=== PATIENT | male | born 1960 | race Caucasian/White ===

== ENCOUNTER 2017-03-04 13:47 | Outpatient (CLI) | payer OTHER ==
--- NOTE | 2017-03-04 19:59 | MRI ---
MRI OF THE LUMBAR SPINE WITH AND WITHOUT IV CONTRAST: Indication: Lumbar radiculopathy, low back pain, numbness down left leg. Technique: Multiplanar, multisequence MR images were obtained of the lumbar spine with and without co ntrast. 20 cc of MultiHance administered. Comparison: 04-20-16 FINDINGS: There is post-surgical change of laminectomy at the L2-3 level. There are stable changes of a left la minotomy at L5-S1. The bone marrow signal intensity appears within normal limits. There is a small 1.2 cm cyst involving the superior pole of the right kidney. Visualized retroperitoneal appears within normal limits. At the L5-S1 level, there is a residual broad based disc bulge and facet hypertrophy inducing mild le ft lateral recess narrowing without definite contact of the traversing left S1 nerve root. There is l oss of disc space height in addition to the distal osteophyte complex and facet joint degenerative ch nicole induces moderate left and mild to moderate right neural foraminal narrowing which is stable to t he prior exam. At L4-5, there is an asymmetric to the left broad based disc osteophyte complex and facet hypertrophy inducing mild central canal narrowing with moderate right and moderate to severe left neural foramin al narrowing which is stable. At L3-4, there is a disc osteophyte complex and facet joint degenerative change inducing moderate rig ht and mild to moderate left neural foraminal narrowing which is stable. At L2-3, there is an asymmetric to the right disc osteophyte complex with a superimposed right parace ntral protrusion causing severe narrowing of the right lateral recess with probable impingement of th e traversing right L3 nerve root. There is mild central canal narrowing at this level. Broad based bu lge and facet joint degeneration inducing moderate right and mild left facet joint degenerative fleming e which is stable. At L1-2, there is a broad based bulge with facet joint degenerative change without appreciable centra l canal or neural foraminal narrowing. At T12-L1, there is no appreciable central canal or neural foraminal narrowing. At T11-12, there is a left paracentral protrusion which is stable causing mild effacement of the left ventral lateral thecal sac. No definite neural foraminal narrowing is evident. There are stable post-operative changes of laminotomies on the left at L5-S1. There is new laminotomy change seen on the left at L4-5. Post contrast images demonstrate some epidural fibrosis seen at the laminectomy site at L2-3 and on t he left at L4-5 and L5-S1. IMPRESSION: 1. Persistent broad based disc osteophyte complex with right paracentral protrusion causing severe ri ght lateral recess narrowing at L2-3 and probable impingement of the traversing right L3 nerve root. There is stable central canal narrowing at this level. 2. Stable multilevel neural foraminal narrowing as detailed above. 3. Right renal cyst. POS: ANTONIA
== END 2017-03-04 13:48 | disposition home or self-care (01) ==
LOC: TBSIIMAG 13:47
PROVIDERS: ATTEND Neurological Surgery
DX: M54.16 Radiculopathy, lumbar region (principal); M99.83 Other biomechanical lesions of lumbar region; N28.1 Cyst of kidney, acquired
CPT/HCPCS: 72158

== ENCOUNTER 2017-04-01 14:22 | Outpatient (CLI) | payer OTHER | END 2017-04-01 14:23 | disposition home or self-care (01) | LOC: BICCT 14:22 | PROVIDERS: ATTEND Neurological Surgery | DX: M47.26 Other spondylosis with radiculopathy, lumbar region (principal); M51.16 Intervertebral disc disorders with radiculopathy, lumbar region; M48.061 Spinal stenosis, lumbar region without neurogenic claudication; Z98.1 Arthrodesis status | CPT/HCPCS: 72131 ==

== ENCOUNTER 2017-04-11 09:18 | Outpatient (CLI) | payer OTHER ==
--- NOTE | 2017-04-27 13:26 | EKG ---
Test Reason : Blood Pressure : / mmHG Vent. Rate : 079 BPM Atrial Rate : 079 BPM P-R Int : 192 ms QRS Dur : 110 ms QT Int : 404 ms P-R-T Axes : 061 057 005 degrees QTc Int : 463 ms Normal sinus rhythm Inferior infarct , age undetermined Abnormal ECG When compared with ECG of 28-MAY-2016 10:17, No significant change was found Confirmed by LOCO SCHAEFER MD ([id number]) on 04/27/2017 1:25:54 PM Referred By: BETHANIE Confirmed By:LOCO SCHAEFER MD
== END 2017-04-11 09:19 | disposition home or self-care (01) ==
LOC: LABBT 09:18
PROVIDERS: ATTEND Neurological Surgery
DX: Z01.818 Encounter for other preprocedural examination (principal); M54.16 Radiculopathy, lumbar region
CPT/HCPCS: 93005; 93010

== ENCOUNTER 2017-04-17 08:49 | Day surgery (SDC) | payer OTHER ==
[2017-04-11 09:37] VITALS: BMI 30.2
--- NOTE | 2017-04-16 16:03 | HP ---
HISTORY OF PRESENT ILLNESS: Mr. Mota is a 56-year-old man, who presents for evaluation of lumbar radiculopathy in a left L5 fashion and partial S1 fashion. He is known to us for previous multileve l lumbar decompressions and returns now with a CT scan at [place] that reveals again lateral reces s stenosis and foraminal stenosis of L5 that would account for his symptoms to the left. He is here to discuss surgical intervention. PAST MEDICAL HISTORY: Diabetes, gout, hernia, hyperlipidemia, and hypertension. CURRENT MEDICATIONS: Metformin, allopurinol, amlodipine, levothyroxine, Mobic, lisinopril, Benefiber , atorvastatin, cyclobenzaprine, Tylenol #3. ALLERGIES: Any STEROIDS. PHYSICAL EXAMINATION: NEUROLOGIC: Patient is alert and oriented x3. Gait is significantly antalgic. Lower extremity yris r exam is normal. ASSESSMENT: Lumbar radiculopathy. PLAN: Dr. Porter met with the patient, reviewed imaging, and ultimately advocated for a left L5 facet ectomy. He explained to the patient the risks, benefits, and alternatives to the procedure. The pat ient expressed understanding and would like to move forward with surgery as discussed. I do believe the patient is mentally competent and capable of making medical decisions for himself and we will mov e forward with surgery as planned. Juan Salazar PA-C dictating for Jacoby Porter M.D.
[2017-04-17] MEDS ORDERED: CEFAZOLIN/Water 2 GM/20 ML SYRINGE ONE ×2 (09:21→14:03)
[2017-04-17] MEDS ORDERED: Bupivacaine/Epinephrine 0.25% 30 ML VIAL ONE (09:33)
[2017-04-17] MEDS ORDERED: Thrombin 5000 UNITS/5 ML VIAL ONE (10:27)
[2017-04-17] MEDS ORDERED: Midazolam HCl 2 mg/2 ml Vial ONE (10:32)
[2017-04-17] MEDS ORDERED: Fentanyl 250 MCG/5 ML VIAL ONE (10:32)
[2017-04-17] MEDS ORDERED: HYDROmorphone 2 MG/ML VIAL SLOW IVP PRN (11:55)
[2017-04-17] MEDS ORDERED: Promethazine HCl 25 MG/ML VIAL SLOW IVP PRN (11:55)
[2017-04-17] MEDS ORDERED: Meperidine HCl/PF 25 MG/ML VIAL SLOW IVP PRN (11:55)
[2017-04-17] MEDS ORDERED: Morphine Sulfate 2 MG/ML SYRINGE SLOW IVP PRN (11:55)
--- NOTE | 2017-04-17 12:54 | OP ---
DATE OF PROCEDURE: 04/17/2017 SURGEON: Jacoby Porter M.D. COMPLIANCE ADMINISTRATOR: Mike Salazar PA-C. INDICATION: Pain. DIAGNOSIS: Lumbar radiculopathy. PROCEDURES PERFORMED: Reoperation left L5 facetectomy. ANESTHESIA: General. TECHNIQUE: The patient was brought into the operating room and placed under general anesthesia. He was flipped from a supine to a prone position on the operating room table. A linear incision was jairo nned at the location of the prior incision. This area was prepped and draped. After an appropriate operative pause, the incision was created. The soft tissues were swept away from midline. Self-boogie ining retractors were placed in the wound for optimal exposure. After confirming the appropriate lev el, a high-speed cutting drill bit as well as 2, 3 and 4 mm Kerrisons were used to remove the majorit y of the facet joint at L5-S1 on the left. There were bone spurs emanating from the superior articul ating facet of S1 as well as spurs from the inferior aspect of L5. These were carefully removed unti l the foramen was patent. We opened without evidence of compression. There was a substantial degree of scar present for a prior operation. Some of this was removed. Some of it was adherent to the du ra and the exiting nerve root which was not removed, but was no longer under pressure. I did inspect the right side. New onset symptoms on the proximal aspect of the posterior right leg. I also revie wed the patient's CT scan and there was nothing to be done surgically in that location. The wound wa s then irrigated. Hemostasis was maintained throughout. The wound was then closed in anatomic layer s and a pressure dressing was applied. There were no known procedural complications.
[2017-04-17] MEDS ORDERED: Fentanyl 100 MCG/2 ML VIAL ONE (13:06)
[2017-04-17] MEDS ORDERED: Tamsulosin HCl 0.4 MG CAP ONE (13:20)
[2017-04-17] MEDS ORDERED: Ondansetron ODT 4 MG TAB ONE (14:11)
[2017-04-17] MEDS ORDERED: HYDROcodone/Acetaminophen 5/325 mg Tablet ONE (14:17)
[2017-04-17] MEDS ORDERED: Propofol 200 MG/20 ML VIAL ONE (14:52)
[2017-04-17] MEDS ORDERED: Ondansetron HCl/PF 4 MG/2 ML Vial ONE (14:52)
[2017-04-17] MEDS ORDERED: Lidocaine 1% PF 5 ML VIAL ONE (14:52)
[2017-04-17] MEDS ORDERED: Glycopyrrolate 0.2 MG/ML 5 ML SYRINGE ONE (14:52)
== END 2017-04-17 15:48 | disposition home or self-care (01) ==
LOC: SDC 08:49
PROVIDERS: ATTEND Anesthesiology
PROC: 01NB0ZZ Release Lumbar Nerve, Open Approach (ICD-10-PCS; principal; 2017-04-17)
DX: M54.16 Radiculopathy, lumbar region (principal); E11.9 Type 2 diabetes mellitus without complications; E78.5 Hyperlipidemia, unspecified; M10.9 Gout, unspecified; I10 Essential (primary) hypertension; Z88.8 Allergy status to other drugs, medicaments and biological substances; Z79.84 Long term (current) use of oral hypoglycemic drugs; Z79.899 Other long term (current) drug therapy
CPT/HCPCS: 76001; 96374; J2001; J2250; J2405; J2704; J3010; Q0162

== ENCOUNTER 2018-11-17 13:36 | Outpatient (CLI) | payer BC ==
--- NOTE | 2018-11-17 14:43 | RAD ---
CHEST 2 VIEWS: DATE: 11/17/2018. COMPARISON: None. HISTORY: Sarcoidosis. FINDINGS: There is no pneumothorax or pleural fluid. No focal consolidation or alveolar edema. There is mild pr ominence of bilateral hilar shadows, right greater than left. Findings could signify lymphadenopathy. IMPRESSION: Possible hilar adenopathy, particularly on the right. Recommend CT examination of the chest. Lung par enchyma grossly unremarkable. CODE T Transcribed Date/Time: 11/17/2018 2:30 PM
== END 2018-11-17 13:37 | disposition home or self-care (01) ==
LOC: RAD-FRANK 13:36
PROVIDERS: ATTEND Physician Assistant Medical
DX: L92.3 Foreign body granuloma of the skin and subcutaneous tissue (principal)
CPT/HCPCS: 71046

== ENCOUNTER 2021-01-27 07:03 | Day surgery (SDC) | payer BC ==
[2021-01-27 07:54] VITALS: BP 156/83; TEMP 99
[2021-01-27] MEDS ORDERED: Iopamidol-M 300 61% 15 ML VIAL ONE (10:22)
== END 2021-01-27 10:00 | disposition home or self-care (01) ==
LOC: RAD 07:03 → EDSTATUS 08:00 → RAD 10:00
PROVIDERS: ATTEND Orthopaedic Surgery Orthopaedic Surgery of the Spine
DX: M47.26 Other spondylosis with radiculopathy, lumbar region (principal); M54.14 Radiculopathy, thoracic region; M41.9 Scoliosis, unspecified; Z79.84 Long term (current) use of oral hypoglycemic drugs; Z79.899 Other long term (current) drug therapy; Z88.8 Allergy status to other drugs, medicaments and biological substances
CPT/HCPCS: 62305; 72129; 72132; Q9967

== ENCOUNTER 2021-02-06 07:40 | Outpatient (CLI) | payer BC | END 2021-02-06 07:41 | disposition home or self-care (01) | LOC: BICMAMMO 07:40 | PROVIDERS: ATTEND Orthopaedic Surgery Orthopaedic Surgery of the Spine | DX: M81.0 Age-related osteoporosis without current pathological fracture (principal) | CPT/HCPCS: 77080 ==